=== PATIENT | male | born 1965 | race Caucasian/White ===

== ENCOUNTER 2016-11-09 07:15 | Emergency (ER) | payer OTHER ==
[2016-11-09 07:27] VITALS: RESP 16; TEMP 99
--- NOTE | 2016-11-09 07:32 | UCPHY ---
H & P Time Seen by Provider: 11/09/16 07:31 Patient Type: New HPI/ROS: CHIEF COMPLAINT: Fever, cough, congestion HISTORY OF PRESENT ILLNESS: The patient presents to the urgent care with a 2 day history of fever, cough and congestion. The patient does report myalgias. The patient did get a influenza vaccination this year. The patient has no history of significant past medical history including asthma, diabetes or heart disease. The patient denies abdominal pain, vomiting or diarrhea. The patient denies additional acute complaints. REVIEW OF SYSTEMS: A comprehensive 10 point review of systems is otherwise negative aside from elements mentioned in the history of present illness. Past Medical/Surgical History: Past medical history: Noncontributory Smoking Status: Never smoked Physical Exam: General Appearance: Alert, no distress Eyes: Pupils equal and round no pallor or injection ENT, Mouth: Mucous membranes moist Respiratory: There are no retractions, lungs are clear to auscultation Cardiovascular: Regular rate and rhythm Gastrointestinal: Abdomen is soft and nontender, no masses, bowel sounds normal Neurological: A&O, normal motor function, normal sensory exam, normal cranial nerves Skin: Warm and dry, no rashes Musculoskeletal: Neck is supple nontender Extremities: symmetrical, full range of motion Constitutional: Initial Vital Signs Temperature (C) 37.2 C 11/09/16 07:25 Heart Rate 73 11/09/16 07:25 Respiratory Rate 16 11/09/16 07:25 Blood Pressure 109/76 11/09/16 07:25 O2 Sat (%) 93 11/09/16 07:25 O2 Delivery Mode Room Air Allergies/Adverse Reactions: No Known Allergies Allergy (Verified 11/09/16 07:27) Home Medications: Medication Instructions Recorded Albuterol [Ventolin Hfa Inhaler] 2 puffs IH QID PRN #1 mdi 11/09/16 Citalopram 11/09/16 Levothyroxine 11/09/16 Omeprazole 11/09/16 Oseltamivir Phosphate [Tamiflu] 75 mg PO BID #10 cap 11/09/16 Medical Decision Making ED Course/Re-evaluation: The patient is well-appearing and in no acute distress. He presents to with symptoms consistent with an influenza infection. The patient has had symptoms less than 48 hours and will be treated empirically with Tamiflu. The patient has no clinical evidence of pneumonia meningitis. His vital signs are stable and he is well-appearing. The patient has been discharged home with customary aftercare instructions and return precautions. Differential Diagnosis: Differential diagnosis considered includes otitis media, influenza, pneumonia, viral syndrome Departure - Departure Disposition: Home, Routine, Self-Care Clinical Impression: Influenza Condition: Good Instructions: Influenza (ED) Additional Instructions: 1. Take Ibuprofen or Motrin 600 mg by mouth three times a day. 2. Use albuterol as needed for cough. 3. Please take Tamiflu as directed. 4. Please return to the urgent care or emergency department for any worsening symptoms, difficulty breathing or other concerns. Referrals: NITO GIBBONS [Primary Care Provider] - As per Instructions Prescriptions: Albuterol [Ventolin Hfa Inhaler] 2 puffs IH QID PRN #1 mdi PRN Reason: for shortness of breath Oseltamivir Phosphate [Tamiflu] 75 mg PO BID #10 cap - PQRS PQRS Measurement: Not applicable
[2016-11-09 07:53] VITALS: BP 112/76; PULSE 71; O2SAT 96
== END 2016-11-09 07:45 | disposition home or self-care (01) ==
LOC: CED 07:15
DX: J11.1 Influenza due to unidentified influenza virus with other respiratory manifestations (principal)
CPT/HCPCS: G0463-PO